=== PATIENT | male | born 1965 | race Two or more races ===

== ENCOUNTER 2024-09-03 07:55 | Day surgery (SDC) | payer BC, SELFPAY ==
--- NOTE | 2024-09-01 11:47 | EKG_ITS ---
[facility] Test Date: 2024-09-01 Pat Name: GRISELDA AMAYA Department: Room: - Gender: Male [employer] Keyholder: RT STUDENT : 1965 Requested By: Brendon Mo Order Number: [id number] Reading MD: Brendon Mo Measurements Intervals [place] Rate: 60 P: 55 ID: [id number] QRS: -43 QRSD: 118 T: 46 QT: 409 QTc: 409 Interpretive Statements SINUS RHYTHM POSSIBLE LEFT ATRIAL ENLARGEMENT MARKED LEFT AXIS DEVIATION MODERATE INTRAVENTRICULAR CONDUCTION DELAY EARLY REPOLARIZATION No previous ECG available for comparison /[id number]
[2024-09-01 11:51] VITALS: BMI 34.5
[2024-09-01 12:46] LABS: Basophils # (Auto) 0.1 Thou/mm3 (0.0-0.2); Basophils % (Auto) 1 % (0-2.5); Eosinophils # (Auto) 0.2 Thou/mm3 (0.0-0.5); Eosinophils % (Auto) 3 % (0-10); Hematocrit 45.6 % (41.0-53.0); Hemoglobin 15.9 g/dL (13.5-16.0); Immature Granulocytes % (Auto) 0 % (0-0); Immature Granulocytes Auto 0.01 Thou/mm3 (0.00-0.00); Lymphocytes # (Auto) 2.1 Thou/mm3 (1.0-4.8); Lymphocytes % (Auto) 38 % (10-50); Mean Corpuscular HGB Conc 34.9 g/dl (31.0-37.0); Mean Corpuscular Hemoglobin 30.1 pg (25.0-35.0); Mean Corpuscular Volume 86 fL (80-100); Monocytes # (Auto) 0.4 Thou/mm3 (0.0-0.8); Monocytes % (Auto) 8 % (0-12); Neutrophils # (Auto) 2.8 Thou/mm3 (1.8-7.7); Neutrophils % (Auto) 51 % (37-80); Nucleated Red Blood Cell % 0 /100 WBC (0); Platelet Count 182 Thou/mm3 (140-440); RDW Standard Deviation 41.1 fL (35.1-43.9); Red Blood Count 5.28 Miln/mm3 (4.50-5.90); White Blood Count 5.5 Thou/mm3 (3.8-10.6)
[2024-09-01 13:07] LABS: INR 1.1 (0.9-1.3); Partial Thromboplastin Time 28.2 Seconds (22.0-36.0); Prothrombin Time 11.5 Seconds (9.0-12.2)
[2024-09-01 13:16] LABS: Alanine Aminotransferase 54 U/L (10-49); Albumin, Serum 4.8 gm/dL (3.4-4.8); Albumin/Globulin Ratio 1.8 (1.2-2.2); Alkaline Phosphatase 84 U/L (46-116); Anion Gap 8 (7-16); Aspartate Amino Transferase 30 U/L (0-34); BUN/Creatinine Ratio 12 Ratio (12-20); Bilirubin,Total 0.6 mg/dL (0.3-1.2); Blood Urea Nitrogen 11 mg/dL (9-23); Calcium 9.5 mg/dL (8.3-10.6); Calcium (Corrected) 9.5 mg/dL (8.5-10.1); Chloride 103 mMol/L (98-107); Creatinine (Component) 0.9 mg/dL (0.6-1.3); Globulin 2.6 gm/dL (2.3-3.5); Glucose 90 mg/dL (74-106); Osmolality,Calculated 276 (275-295); Sodium 139 mMol/L (136-145); Total Protein 7.4 gm/dL (5.7-8.2); eGFR > 60 See Note
[2024-09-03] VITALS (7 sets, daily range): BP systolic 110–132; BP diastolic 61–77; PULSE 72–89; RESP 12–20; TEMP 36.2–36.4; O2SAT 95–98; BMI 34.1
--- NOTE | 2024-09-03 11:53 | SUR.PHASEI ---
pt received from OR in recovery bay 7. pt obtunded, breathing unlabored on oxymask 8l, oral airway in place. v/s stable. pt dressing to abd cdi. report received from Reji BLANCO and Annabelle RICH.
--- NOTE | 2024-09-03 12:02 | PD.SUROPNT ---
Date of Procedure 09/03/24 Pre Op Diagnosis Symptomatic left inguinal hernia Post Op Diagnosis Same, direct inguinal hernia Procedure Repair of the left direct inguinal hernia with reconstruction of the floor with 3.[address] mesh and an onlay mesh Findings Patient is found to have a large direct inguinal hernia which manifested over the hasselbach Striegel. There is no indirect inguinal hernia Procedure Description After the patient was given general anesthesia patient was placed in supine position. Lower abdomen was prepped with ChloraPrep solution and draped in a sterile manner. Then the [left] inguinal incision was made for about [7 cm] in length. External oblique was incised and the cord structures were encircled and(. The patient was found to have no indirect sac and it was obvious that the patient had a large direct inguinal hernia because of the bulging medial to the cord structures in the transversalis fascia over hasselbach triangle The cord structures were encircled around a Dinorah drain. The floor of the inguinal canal was reconstructed as follows: I made an incision in the transversalis fascia which was thin and attenuated. The preperitoneal fat was entered and the used 3 4 x 4's to create a space to place the modified Ventralex ST mesh with 3.2 inches in diameter] in diameter. After the mesh was placed in the superior strap was attached to the internal oblique with a 2-0 Prolene. The inferior strap was attached to the structures the above the Amol's ligament but not shelving edge.. The sponge count was made to confirm that all of them were removed before the mesh was placed in place. Then I approximated the transversalis fascia over the mesh using a 2-0 Prolene. At the end of the floor of the inguinal canal appeared to be strong and without any weakness. Then I placed an onlay mesh over the floor and attached it medially to the pubic tubercle with a 2-0 Prolene suture. Laterally it was encircling the cord structures after making a hole in the mesh. The tails of the mesh was tucked underneath the external oblique. After checking for any bleeding point the external oblique was closed with a running 2-0 Vicryl. Subcutaneous tissues was closed with 3`0 plain and I injected half percent Marcaine with epinephrine for analgesia. The subcuticular approximation was performed with 4-0 Monocryl. Dressing was applied with Adaptic and 4 x 4 and the patient tolerated the procedure well and was returned to recovery room in stable condition. Anesthesia GETA Pathology / specimen None Estimated Blood Loss 20 Condition Stable Disposition PACU Surgeon Deuce Garcia MD Surgical Staff Operation Date: 09/03/24 10:15 Case Staff Anesthesiologist: Alexei Yeung RN First Assistant: Ivanna Senior
--- NOTE | 2024-09-03 12:07 | SUR.PHASEI ---
pt able to tolerate oral fluids without difficulty swallowing or nausea/vomiting.
--- NOTE | 2024-09-03 13:00 | SUR.PHASEII ---
pt awake and alert, breathing unlabored on room air. v/s stable. pt dressing to abd cdi. pt able to ambulate to wheelchair with steady gait. d/c instructions given with and daughter in room, all questions answered. pt d/c via wheelchair with all belongings.
== END 2024-09-03 13:00 | disposition home or self-care (01) ==
PROVIDERS: PCP Family Medicine; Referring Provider Surgery; Visit Provider Surgery
PROC: (CPT 49505; principal; 2024-09-03 10:00)
DX: K40.90 Unilateral inguinal hernia, without obstruction or gangrene, not specified as recurrent (principal); Z01.810 Encounter for preprocedural cardiovascular examination
CPT/HCPCS: 49505; 36415; 80053; 85025; 85610; 85730; 93005; A4217; A4649; C1781; J1100; J2371; J2405; J2704; J3010; J3490

== ENCOUNTER 2024-09-17 06:00 | Day surgery (SDC) | payer BC, SELFPAY ==
[2024-09-15 10:47] VITALS: BMI 34.2
[2024-09-15 12:04] LABS: Basophils # (Auto) 0.1 Thou/mm3 (0.0-0.2); Basophils % (Auto) 1 % (0-2.5); Eosinophils # (Auto) 0.1 Thou/mm3 (0.0-0.5); Eosinophils % (Auto) 2 % (0-10); Hematocrit 45.7 % (41.0-53.0); Hemoglobin 15.8 g/dL (13.5-16.0); Immature Granulocytes % (Auto) 1 % (0-0); Immature Granulocytes Auto 0.04 Thou/mm3 (0.00-0.00); Lymphocytes % (Auto) 31 % (10-50); Mean Corpuscular HGB Conc 34.6 g/dl (31.0-37.0); Mean Corpuscular Hemoglobin 29.9 pg (25.0-35.0); Mean Corpuscular Volume 87 fL (80-100); Monocytes # (Auto) 0.4 Thou/mm3 (0.0-0.8); Monocytes % (Auto) 7 % (0-12); Neutrophils # (Auto) 3.9 Thou/mm3 (1.8-7.7); Neutrophils % (Auto) 59 % (37-80); Nucleated Red Blood Cell % 0 /100 WBC (0); Platelet Count 243 Thou/mm3 (140-440); RDW Standard Deviation 40.9 fL (35.1-43.9); Red Blood Count 5.28 Miln/mm3 (4.50-5.90); White Blood Count 6.5 Thou/mm3 (3.8-10.6)
[2024-09-15 12:11] LABS: Partial Thromboplastin Time 27.3 Seconds (22.0-36.0); Prothrombin Time 11.2 Seconds (9.0-12.2)
[2024-09-15 12:16] LABS: Alanine Aminotransferase 63 U/L (10-49); Albumin, Serum 4.7 gm/dL (3.4-4.8); Albumin/Globulin Ratio 1.7 (1.2-2.2); Alkaline Phosphatase 89 U/L (46-116); Anion Gap 8 (7-16); Aspartate Amino Transferase 30 U/L (0-34); BUN/Creatinine Ratio 12 Ratio (12-20); Bilirubin,Total 0.6 mg/dL (0.3-1.2); Blood Urea Nitrogen 11 mg/dL (9-23); Calcium 9.6 mg/dL (8.3-10.6); Calcium (Corrected) 9.6 mg/dL (8.5-10.1); Carbon Dioxide 28.4 mMol/L (20.0-31.0); Chloride 102 mMol/L (98-107); Creatinine (Component) 0.9 mg/dL (0.6-1.3); Estimated Creatinine Clearance 93.6 mL/min (>60); Globulin 2.7 gm/dL (2.3-3.5); Glucose 107 mg/dL (74-106); Osmolality,Calculated 275 (275-295); Potassium 3.6 mMol/L (3.4-5.1); Sodium 138 mMol/L (136-145); Total Protein 7.4 gm/dL (5.7-8.2); eGFR > 60 See Note
[2024-09-17] VITALS (8 sets, daily range): BP systolic 117–156; BP diastolic 72–86; PULSE 62–79; RESP 13–19; TEMP 36.2–37.1; O2SAT 94–95; BMI 33.9
[2024-09-17] MEDS: RINGERS LACTATED 1000 ML 1,000 ML 20 ML IV (06:39)
--- NOTE | 2024-09-17 09:57 | SUR.PHASEI ---
pt received from OR in recovery bay 2. pt asleep but responds to voice, breathing unlabored on room air. v/s stable. pt dressing to abd x4 cdi. report received from Isaac Garcia and Dr. Yeung.
--- NOTE | 2024-09-17 10:05 | ESOP_ITS ---
Date of Procedure 09/17/24 Pre Op Diagnosis Symptomatic cholelithiasis Symptomatic umbilical hernia Post Op Diagnosis Same Procedure Laparoscopic cholecystectomy Repair of the umbilical hernia Findings Patient is found to have an umbilical hernia with a defect measuring about a centimeter in diameter mostly herniating preperitoneal fat. He also was found to have gallbladder that is not inflamed but had a single stone Procedure Description After endotracheal anesthesia was given the patient was placed in supine position and the abdomen was prepped with chloroprep solution and draped in a sterile manner. After time out was performed I injected a few cc of of half percent Marcaine with epinephrine below the umbilicus and I made an incision for about 3 cm in length which was semilunar incision below the umbilicus. The fascia was cleaned and the umbilical hernia was found to have preperitoneal fat. And Veress needle was inserted to create a pneumoperitoneum up to 15 mmHg. Then introduced a 12 mm trocar and a 10 mm camera through the fascia and I inspected the intra-abdominal organs as well as the gallbladder and the liver. Another 5 mm trocar was inserted in the epigastric region under direct vision after injecting some local anesthesia. At this time the patient was kept in reverse Trendelenburg position with the left lateral tilt. Patient was found to have some adhesions right in the upper abdomen preventing the view of the liver. Using harmonic kemi I released these adhesions. The third 5 mm trocar was inserted over the mid axillary line under direct vision and a Jimmy and Sandy grasper was used to hold the fundus of the gallbladder. The retraction was carried out by the reference assistant moving the fundus of the gallbladder towards the right shoulder of the patient to create enough traction. I placed a another 5 mm trocar in the midaxillary line just lateral to the rectus muscle under direct vision. I used a fenestrated grasper to retract the neck of the gallbladder laterally towards the patient's right hip. The Calot's triangle was exposed and I achieved the critical view of safety as follows: I dissected out the fatty tissue from the hepatocystic triangle and cleared this area. I also dissected inferior and posterior to the gallbladder to identify the cystic duct and the gallbladder wall. Then superiorly I dissected along the cystic plate up to lower one third third of the gallbladder to lift the gallbladder from the liver. At this time I confirmed that only 2 structures entering the gallbladder were cystic artery and the cystic duct. The common duct was seen distally but no dissection was carried out around the duct. I did not see any need for operative cholangiogram in this patient. The cystic duct was clipped doubly and then divided and cystic artery was similarly dealt with. Then the gallbladder was removed from the liver bed using Harmonic kemi to control the small blood vessels as the dissection proceeded. Then the gallbladder was from the liver bed completely and delivered through the umbilical port using an Endopouch. The liver bed was coagulated with cautery to obtain satisfactory hemostasis.. The trocars were then pulled out. The umbilical hernia was approached as follows. Using USA retractors the defect was identified in the umbilical region measuring about a centimeter in diameter. Then I placed 3 sutures of both the bone to close the defect without placing any mesh. The subcutaneous tissue was closed with 3-0 chromic I injected Christiano benoit for local anesthesia the skin was closed with 4 oh [place] Crill both at the umbilical hernia as well as other trocar sites. Dressing was applied and patient tolerated the procedure Anesthesia GETA Pathology / specimen Other (The gallbladder on the stones) IVF Infused 1,000 Estimated Blood Loss 50 Condition Stable Disposition PACU Surgeon Deuce Garcia MD Surgical Staff Operation Date: 09/17/24 08:00 Case Staff Anesthesiologist: Alexei Yeung RN First Assistant: Samantha Almeida
[2024-09-17] MEDS: fentaNYL CIT INJ 50 mCg/ML AMP 2ML 25 MCG IV ×2 (10:16→10:48)
--- NOTE | 2024-09-17 10:42 | SUR.PHASEII ---
pt able to tolerate oral fluids and jello without difficulty swallowing or nausea/vomiting.
--- NOTE | 2024-09-17 11:18 | SUR.PHASEII ---
pt awake and alert, breathing unlabored on room air. v/s stable. pt dressing to abd x4 cdi. pt able to ambulate to wheelchair with steady gait. d/c instructions given with daughter in room, all questions answered. pt d/c via wheelchair with all belongings.
== END 2024-09-17 11:18 | disposition home or self-care (01) ==
PROVIDERS: PCP Family Medicine; Referring Provider Surgery; Visit Provider Surgery
PROC: 0FT44ZZ Resection of Gallbladder, Percutaneous Endoscopic Approach (ICD-10-PCS; CPT 47562; principal; 2024-09-17 08:00)
PROC: (CPT 47562; 2024-09-17 08:00)
DX: K80.10 Calculus of gallbladder with chronic cholecystitis without obstruction (principal); K42.9 Umbilical hernia without obstruction or gangrene
CPT/HCPCS: 47562; 49591; 36415; 80053; 85025; 85610; 85730; A4217; A4649; J0461; J1100; J2250; J2371; J2405; J2704; J3010; J3490; J7120; A9270